=== PATIENT | female | born 1975 | race American Indian/Alaskan Native ===

== ENCOUNTER 2016-12-09 07:00 | Day surgery (SDC) | payer OTHER ==
--- NOTE | 2016-12-09 08:18 | Short Stay Summary ---
Short Stay Documentation Date of service: 12/09/16 Narrative H&P: 41-year-old 052 with a history of abnormal uterine bleeding. The patient had a pelvic ultrasound that demonstrated evidence of endometrial polyps. The patient has elected to undergo surgical management of her abnormal bleeding. - History Principal diagnosis: abnormal uterine bleeding Past Medical History: other (asthma) Past Surgical History: No surgical history Social history: single - Allergies and Medications Current Medications: Allergies seafood Allergy (Uncoded 11/19/16 10:04) Swelling Home Medications Medication Instructions Recorded Confirmed Last Taken Type Albuterol Sulfate [Ventolin HFA] 2 puff IH Q4H PRN 11/19/16 11/19/16 Unknown History - Physical exam General appearance: no acute distress Integumentary: no rash HEENT: Atraumatic Lungs: Clear to auscultation Breasts: deferred Heart: Regular rate Gastrointestinal: normal Female Genitourinary: deferred Rectal Exam: deferred - Brief post op/procedure progress note Date of procedure: 12/09/16 Pre-op diagnosis: Abnormal uterine bleeding; endometrial polyps Post-op diagnosis: same Procedure: hysteroscopy dilation and curettage Anesthesia: HERNESTO Surgeon: MIGUE ZARATE Estimated blood loss: minimal Pathology: list (endometrial curettings) Specimen disposition: to lab Condition: stable - Hospital course Hospital course: Patient was admitted the day of surgery and underwent hysteroscopy dilatation and curettage. Please see operative note for details of surgery. A postoperative course was uneventful. - Disposition Condition at discharge: Good Disposition: [id number] TO HOME OR SELFCARE Short Stay Discharge Plan Activity: other (pelvic rest for one week) Diet: regular Additional Instructions: patient may followup in 2-4 weeks Prescriptions: Ibuprofen [Motrin] 800 mg PO Q8HR PRN #60 tablet PRN Reason: Pain oxyCODONE /ACETAMINOPHEN [Percocet 5/325] 1 tab PO Q6HR PRN #30 tablet PRN Reason: Pain
[2016-12-09] MEDS ORDERED: DECADRON ONE (08:19)
[2016-12-09] MEDS ORDERED: SUBLIMAZE ONE (08:19)
[2016-12-09] MEDS ORDERED: DIPRIVAN 10 MG/ML IV ONE ×2 (08:19→10:06)
[2016-12-09] MEDS ORDERED: XYLOCAINE MPF 2% ONE (08:19)
[2016-12-09] MEDS ORDERED: ZOFRAN ONE (08:19)
--- NOTE | 2016-12-09 08:29 | Anesthesia Consultation ---
Anesthesia Consult and Med Hx Date of service: 12/09/16 - Airway Anesthetic Teeth Evaluation: Good ROM Head & Neck: Adequate Mental/Hyoid Distance: Adequate Mallampati Class: Class I Intubation Access Assessment: Good - Pre-Operative Health Status ASA Pre-Surgery Classification: ASA3 Proposed Anesthetic Plan: General - Pulmonary Hx Asthma: Yes (last treated in the spring) - Central Nervous System Hx Psychiatric Problems: No - Other Systems Hx Cancer: No
--- NOTE | 2016-12-09 08:29 | Anesthesia Day of Surgery ---
Anesthesia Day of Surgery - Day of Surgery Patient Examined: Yes Patient H&P Reviewed: Yes Patient is NPO: Yes
[2016-12-09] MEDS ORDERED: NACL 0.9% 1000 ML 1,000 ML IV SCH (08:59)
[2016-12-09] MEDS ORDERED: VERSED IV NR (09:00)
[2016-12-09] MEDS ORDERED: PEPCID PO NR (09:00)
[2016-12-09] MEDS ORDERED: ZOFRAN IV PRN (09:00)
[2016-12-09] MEDS ORDERED: PERCOCET 5/325 PO PRN (09:00)
[2016-12-09] MEDS ORDERED: DILAUDID IV PRN (09:00)
--- NOTE | 2016-12-09 09:57 | Operative Report ---
Operative Report Operative Report: Date of procedure: 12/09/2016 Pre-operative diagnosis: Abnormal uterine bleeding; endometrial polyps Post-operative diagnosis: Same as above Procedure name(s): Hysteroscopy; dilatation and curettage Surgeon: Esther Solano M.D. Dough Puncher: None Anesthesia: General endotracheal anesthesia Findings thickened endometrium Pathology: Endometrial curettings Indication: 41-year-old 052 with a history of abnormal uterine bleeding. Pelvic ultrasound and demonstrated evidence of endometrial polyps. Procedure The patient was taken to the operating room and given general tracheal anesthesia without complication. The patient was prepped and draped in a normal sterile fashion. A bivalve speculum was placed in the patient's vagina single-tooth tenaculums placed on the anterior lip of the cervix. The cervical os was dilated with graduated dilators. A uterine sound was inserted. The hysteroscope was then placed. Insufflation of the uterine cavity was performed with normal saline. Gen. survey of the uterine cavity revealed thickened and lush endometrium. The hysteroscope was then removed. A sharp curettage was performed of the endometrial surface until cry was achieved. The remainder of the vaginal instruments were then removed atraumatically. The patient was then successfully extubated taken to the recovery room. All sponge laps and needle counts were correct 2.
[2016-12-09] MEDS ORDERED: SORBITOL-MANNITOL IRRIG IR ONE (10:15)
[2016-12-09] MEDS ORDERED: ePHEDrine SULFATE ONE (10:18)
--- NOTE | 2016-12-09 11:19 | Post Anesthesia Evaluation ---
- Post Anesthesia Evaluation Patient Participated: Yes Airway Patent: Yes Stable Respiratory Function: Yes Temp > 96.8F: Yes Pain Manageable: Yes Adequeate Hydration: Yes Anesthesia Complications: No Block Receding Appropriately: Not Applicable
[2016-12-09 12:36] VITALS: BP 140/74
== END 2016-12-09 12:41 | disposition home or self-care (01) ==
LOC: OR 07:00
PROVIDERS: ATTEND Obstetrics & Gynecology
DX: N84.0 Polyp of corpus uteri (principal); N85.01 Benign endometrial hyperplasia; J45.909 Unspecified asthma, uncomplicated; Z91.013 Allergy to seafood; Z79.899 Other long term (current) drug therapy
CPT/HCPCS: 58558; 81025; 88305; J1100; J2250; J2405; J2704; J3010; J7030

== ENCOUNTER 2017-05-03 17:44 | Emergency (ER) | payer OTHER ==
[2017-05-03 18:24] VITALS: BP 118/75
[2017-05-03] MEDS ORDERED: DUONEB *Not for PRN Use IH ONE ×2 (18:34→23:08)
[2017-05-03 19:06] LABS: Anion Gap 16 mmol/L; BUN/Creatinine Ratio 20; Blood Urea Nitrogen 8 mg/dL (7-17); Calcium 8.9 mg/dL (8.4-10.2); Carbon Dioxide 27 mmol/L (22-30); Chloride 99.1 mmol/L (98-107); Glucose 88 mg/dL (65-100); Potassium 4.2 mmol/L (3.6-5.0); Sodium 138 mmol/L (137-145)
[2017-05-03 19:14] LABS: Basophils % (Auto) 0.5 % (0.0-1.8); Eosinophils % (Auto) 9.1 % (0.0-4.3); Hematocrit 40.9 % (30.3-42.9); Hemoglobin 14.1 gm/dl (10.1-14.3); Mean Corpuscular HGB Conc 35 % (30-34); Mean Corpuscular Hemoglobin 31 pg (28-32); Mean Corpuscular Volume 91 fl (79-97); Platelet Count 229 K/mm3 (140-440); Red Blood Count 4.52 M/mm3 (3.65-5.03); Red Cell Distribution Width 12.5 % (13.2-15.2); White Blood Count 10.5 K/mm3 (4.5-11.0)
--- NOTE | 2017-05-03 21:22 | XRay Report ---
FINAL REPORT PROCEDURE: XR CHEST ROUTINE 2V TECHNIQUE: PA and lateral chest radiographs were obtained. CPT 20776 HISTORY: Shortness of breath COMPARISON: No prior studies are available for comparison. FINDINGS: Heart: Upper normal size. Mediastinum/Vessels: Normal. Lungs/Pleural space: Normal. Bony thorax: No acute osseous abnormality. Other: IMPRESSION: Heart size upper normal. No acute abnormalities are identified..
[2017-05-03] MEDS ORDERED: ATROVENT IH ONE (21:29)
[2017-05-03] MEDS ORDERED: PROVENTIL IH ONE (21:29)
--- NOTE | 2017-05-03 23:11 | Emergency Department Report ---
ED Shortness of Breath HPI - General Chief Complaint: Dyspnea/Respdistress Stated Complaint: ASTHMA Time Seen by Provider: 05/03/17 22:46 Source: patient Mode of arrival: Ambulatory Limitations: No Limitations - History of Present Illness Initial Comments: 41 yo female who comes in today due to an asthma exacerbation. She states that her asthma started to act up on last weekend around Wednesday. She states that she only takes ventolin prn for her asthma. Also states that the change in weather made her asthma worse. Denies chest pain, fever, chils, but does admit to cough. MD Complaint: shortness of breath, "asthma attack" -: days(s) (three ) Radiation: other (none) Severity: moderate Improves With: bronchodilators Worsens With: coughing Known History Of: asthma Context: recent URI Associated Symptoms: cough Treatments Prior to Arrival: bronchodilator - Related Data Home Oxygen Therapy: No Home Medications Medication Instructions Recorded Confirmed Last Taken Albuterol Sulfate [Ventolin HFA] 2 puff IH Q4H PRN 11/19/16 11/19/16 Unknown Previous Rx's Medication Instructions Recorded Last Taken Type Ibuprofen [Motrin] 800 mg PO Q8HR PRN #60 tablet 12/09/16 Unknown Rx oxyCODONE /ACETAMINOPHEN [Percocet 1 tab PO Q6HR PRN #30 tablet 12/09/16 Unknown Rx 5/325] Prednisone 40 mg PO DAILY 3 Days tab.ds.pk 05/04/17 Unknown Rx Allergies Allergy/AdvReac Type Severity Reaction Status Date / Time seafood Allergy Swelling Uncoded 11/19/16 10:04 ED Review of Systems ROS: Stated complaint: ASTHMA Other details as noted in HPI Constitutional: denies: chills, fever Eyes: denies: eye pain, eye discharge, vision change ENT: denies: ear pain, throat pain Respiratory: see HPI, cough Cardiovascular: denies: chest pain, palpitations Endocrine: no symptoms reported Gastrointestinal: denies: abdominal pain, nausea, diarrhea Genitourinary: denies: urgency, dysuria, discharge Musculoskeletal: denies: back pain, joint swelling, arthralgia Skin: denies: rash, lesions Psychiatric: denies: anxiety, depression Hematological/Lymphatic: denies: easy bleeding, easy bruising ED Past Medical Hx - Past Medical History Previous Medical History?: Yes Hx Headaches / Migraines: Yes (migraines during periods) Hx Asthma: Yes (last treated in the spring) Hx HIV: No - Surgical History Past Surgical History?: Yes Additional Surgical History: dnc - Social History Smoking Status: Never Smoker Substance Use Type: Alcohol - Medications Home Medications: Home Medications Medication Instructions Recorded Confirmed Last Taken Type Albuterol Sulfate [Ventolin HFA] 2 puff IH Q4H PRN 11/19/16 11/19/16 Unknown History Ibuprofen [Motrin] 800 mg PO Q8HR PRN #60 tablet 12/09/16 Unknown Rx oxyCODONE /ACETAMINOPHEN [Percocet 1 tab PO Q6HR PRN #30 tablet 12/09/16 Unknown Rx 5/325] Prednisone 40 mg PO DAILY 3 Days tab.ds.pk 05/04/17 Unknown Rx ED Physical Exam - General Limitations: No Limitations General appearance: alert, in no apparent distress - Head Head exam: Present: atraumatic, normocephalic - Eye Eye exam: Present: normal appearance - ENT ENT exam: Present: mucous membranes moist - Neck Neck exam: Present: normal inspection - Respiratory Respiratory exam: Present: wheezes - Cardiovascular Cardiovascular Exam: Present: tachycardia - Extremities Exam Extremities exam: Present: normal inspection - Back Exam Back exam: Present: normal inspection - Neurological Exam Neurological exam: Present: alert, oriented X3 - Psychiatric Psychiatric exam: Present: normal affect, normal mood - Skin Skin exam: Present: warm, dry, intact, normal color. Absent: rash ED Course Vital Signs 05/03/17 05/03/17 05/03/17 18:18 21:38 21:45 Temperature 98.9 F Pulse Rate 109 H Pulse Rate [ 94 H 97 H Anterior Bilateral Throughout] Respiratory 20 Rate Respiratory 22 20 Rate [Anterior Bilateral Throughout] Blood Pressure 118/75 O2 Sat by Pulse 97 Oximetry 05/03/17 05/04/17 05/04/17 23:56 00:05 00:08 Temperature Pulse Rate Pulse Rate [ 94 H 102 H Anterior Bilateral Throughout] Respiratory 20 Rate Respiratory 20 20 Rate [Anterior Bilateral Throughout] Blood Pressure O2 Sat by Pulse 99 Oximetry - Reevaluation(s) Reevaluation #1: 05/04/17 00:24 Patient received steroids and another breathing treatment. Home with albuterol and po steroids. ED Medical Decision Making - Lab Data Result diagrams: 05/03/17 18:37 05/03/17 18:37 - Radiology Data Radiology results: report reviewed No acute process - Medical Decision Making Asthma Upper respiratory infection - Differential Diagnosis asthma, uri Critical care attestation.: If time is entered above; I have spent that time in minutes in the direct care of this critically ill patient, excluding procedure time. ED Disposition Clinical Impression: Asthma, URI (upper respiratory infection) Disposition: TO HOME OR SELFCARE Is pt being admited?: No Does the pt Need Aspirin: No Condition: Stable Instructions: Asthma (ED), Upper Respiratory Infection (ED) Additional Instructions: Take medicine as prescribed. Remember to use your albuterol inhaler as needed for shortness of breath. Return to the ED for worsening shortness of breath, chest pain, fever, chills, or productive cough. Prescriptions: Prednisone 40 mg PO DAILY 3 Days tab.ds.pk Referrals: AGUSTIN CARDONA MD [Primary Care Provider] - 3-5 Days Time of Disposition: 00:28
== END 2017-05-04 01:05 | disposition home or self-care (01) ==
LOC: ED 17:44
DX: J45.909 Unspecified asthma, uncomplicated (principal); J06.9 Acute upper respiratory infection, unspecified; G43.909 Migraine, unspecified, not intractable, without status migrainosus; Z91.013 Allergy to seafood
CPT/HCPCS: 36415; 71020; 80048; 84484; 84703; 85025; 94640; 96372; 99284; J2930

== ENCOUNTER 2018-08-04 09:11 | Outpatient (CLI) | payer OTHER ==
[2018-08-04 11:13] LABS: Chol/HDL Ratio 2.15 %
== END 2018-08-04 09:12 | disposition home or self-care (01) ==
LOC: LAB 09:11
PROVIDERS: ATTEND Internal Medicine
DX: E55.9 Vitamin D deficiency, unspecified (principal); D64.9 Anemia, unspecified; J30.9 Allergic rhinitis, unspecified; N83.209 Unspecified ovarian cyst, unspecified side; J45.909 Unspecified asthma, uncomplicated
CPT/HCPCS: 36415; 80061; 82306

== ENCOUNTER 2018-08-24 08:28 | Outpatient (CLI) | payer OTHER ==
--- NOTE | 2018-08-24 09:45 | Mammography Report ---
Bilateral mammogram: No previous studies available. CAD study utilized. Findings: Heterogeneous breast parenchyma bilaterally. Focal asymmetry subareolar area left breast and inner posterior right breast. No microcalcifications benign axillary nodes. Impression: Focal asymmetry in the left and right breast. Recommend spot compression and sonographic examination. BI-RADS CATEGORY: 0 = Needs additional imaging evaluation ACR BI-RADS MAMMOGRAPHIC CODES: 0 = Needs additional imaging evaluation; 1 = Negative; 2 = Benign; 3 = Probably benign; 4 = Suspicious; 5 = Malignant; 6 = Known biopsy-proven malignancy COMMENT: 1. Dense breast tissue, i.e., adenosis, fibrocystic changes, etc., may obscure an underlying neoplasm. 2. Approximately 10% of cancers are not detected with mammography. 3. A negative mammography report should not delay biopsy if a clinically suspicious mass is present. COMMENT: Patient follow-up letters are generated in [employer].
== END 2018-08-24 08:29 | disposition home or self-care (01) ==
LOC: MAMMO 08:28
PROVIDERS: ATTEND Internal Medicine
DX: Z12.31 Encounter for screening mammogram for malignant neoplasm of breast (principal); J45.909 Unspecified asthma, uncomplicated
CPT/HCPCS: 77067

== ENCOUNTER 2018-11-16 10:22 | Outpatient (CLI) | payer OTHER ==
[2018-11-16 12:00] LABS: Hematocrit 39.5 % (30.3-42.9); Hemoglobin 13.6 gm/dl (10.1-14.3); Mean Corpuscular HGB Conc 34 % (30-34); Mean Corpuscular Volume 90 fl (79-97); Platelet Count 265 K/mm3 (140-440); Red Blood Count 4.38 M/mm3 (3.65-5.03); Red Cell Distribution Width 13.1 % (13.2-15.2)
[2018-11-16 12:23] LABS: Bacteria,Urine 1+ /HPF (Negative); Bilirubin,Urine NEG (Negative); Blood,Urine NEG (Negative); Color,Urine Yellow (Yellow); Mucus,Urine FEW /HPF; Protein,Urine <15 mg/dL mg/dL (Negative); Urobilinogen,Urine < 2.0 mg/dL (<2.0); WBC,Urine < 1.0 /HPF (0.0-6.0)
[2018-11-16 12:32] LABS: Alanine Aminotransferase 15 units/L (7-56); Albumin 4.5 g/dL (3.9-5); BUN/Creatinine Ratio 20; Blood Urea Nitrogen 10 mg/dL (7-17); Calcium 9.1 mg/dL (8.4-10.2); Chol/HDL Ratio 2.18 %; HDL Cholesterol 74 mg/dL (40-59); Hemolysis Index 1; LDL Cholesterol,Direct 84 mg/dL (50-130)
[2018-11-18 11:27] LABS: Vitamin D, 25-OH, D2 27 ng/mL
== END 2018-11-16 10:23 | disposition home or self-care (01) ==
LOC: LAB 10:22
PROVIDERS: ATTEND Internal Medicine
DX: Z13.220 Encounter for screening for lipoid disorders (principal); Z13.1 Encounter for screening for diabetes mellitus; Z11.3 Encounter for screening for infections with a predominantly sexual mode of transmission; E55.9 Vitamin D deficiency, unspecified; D64.9 Anemia, unspecified; J45.909 Unspecified asthma, uncomplicated
CPT/HCPCS: 36415; 80053; 80061; 81001; 82306; 82607; 83036; 84443; 85027; 86592; 87591; 87806

== ENCOUNTER 2019-08-30 08:32 | Outpatient (CLI) | payer OTHER ==
--- NOTE | 2019-08-30 14:44 | Mammography Report ---
DIGITAL SCREENING MAMMOGRAM WITH CAD, 08/30/2019 INDICATION: Routine screening mammography. TECHNIQUE: Digital bilateral 2D mammography was obtained in the craniocaudal and mediolateral obliq ue projections. This examination was interpreted with the benefit of Computer-Aided Detection analysi s. COMPARISON: 08/24/2018 FINDINGS: Breast Density: The breasts are heterogeneously dense, which may obscure small masses. There is no evidence of dominant mass, suspicious calcifications or architectural distortion in eithe r breast. IMPRESSION: No mammographic evidence of malignancy. Follow up recommendation: Routine yearly BI-RADS Category 1: Negative. A "normal" or negative report should not discourage follow up or biopsy of a clinically significant f inding. A written summary of these findings will be mailed to the patient. The patient will be entered into a mammography reporting system which will generate a reminder letter for the patient's next appointmen t at the appropriate interval. The [employer] recommends yearly mammograms starting at age 40 and continuing as l juan as a woman is in good health. Breast MRI is recommended for women with an approximate 20-25% or greater lifetime risk of breast cancer, including women with a strong family history of breast or ova praneeth cancer or who have been treated for Hodgkin's disease. Signer Name: Mark Hardy MD Signed: 08/30/2019 2:39 PM Workstation Name: [id number]
== END 2019-08-30 08:33 | disposition home or self-care (01) ==
LOC: MAMMO 08:32
PROVIDERS: ATTEND Internal Medicine
DX: Z12.31 Encounter for screening mammogram for malignant neoplasm of breast (principal)
CPT/HCPCS: 77067

== ENCOUNTER 2020-09-04 10:48 | Outpatient (CLI) | payer OTHER ==
--- NOTE | 2020-09-04 12:44 | Mammography Report ---
DIGITAL SCREENING MAMMOGRAM WITH CAD, 09/04/2020 CLINICAL INFORMATION / INDICATION: Routine screening mammography. SCREENING MAMMOGRAM TECHNIQUE: Digital bilateral 2D mammography was obtained in the craniocaudal and mediolateral obliqu e projections. This examination was interpreted with the benefit of Computer-Aided Detection analysis . COMPARISON: 07/27/2016 through 08/30/2019. FINDINGS: Breast Density: The breasts are heterogeneously dense, which may obscure small masses. No dominant mass, suspicious calcifications, or architectural distortion in either breast. IMPRESSION: No mammographic evidence of malignancy. Follow up recommendation: Routine yearly BI-RADS Category 1: Negative. A "normal" or negative report should not discourage follow up or biopsy of a clinically significant f inding. A written summary of these findings will be mailed to the patient. The patient will be entered into a mammography reporting system which will generate a reminder letter for the patient's next appointmen t at the appropriate interval. The [employer] recommends yearly mammograms starting at age 40 and continuing as l juan as a woman is in good health. Breast MRI is recommended for women with an approximate 20-25% or greater lifetime risk of breast cancer, including women with a strong family history of breast or ova praneeth cancer or who have been treated for Hodgkin's disease. Signer Name: Tereso Xiao MD Signed: 09/04/2020 11:51 AM Workstation Name: [id number]
== END 2020-09-04 10:49 | disposition home or self-care (01) ==
LOC: MAMMO 10:48
PROVIDERS: ATTEND Internal Medicine
DX: Z12.31 Encounter for screening mammogram for malignant neoplasm of breast (principal)
CPT/HCPCS: 77067

== ENCOUNTER 2020-09-17 13:06 | Emergency (ER) | payer OTHER ==
[2020-09-17] MEDS ORDERED: methylPREDNISolone Sod Succinate 125 MG/2 ML INJ IM ONE (13:57)
[2020-09-17] MEDS ORDERED: IPRATROPIUM/ALBUTEROL SULFATE 3 ML AMPUL.NEB IH ONE (13:57)
--- NOTE | 2020-09-17 14:07 | Emergency Department Report ---
ED Asthma HPI - General Chief Complaint: Adult Asthma Stated Complaint: ASTHMA Time Seen by Provider: 09/17/20 13:43 Source: patient Mode of arrival: Ambulatory Limitations: No Limitations - History of Present Illness Initial Comments: 45 yr old female with pmhx of Asthma presents to ED with c/o asthma symptoms. She states her symptoms started about 1 week ago. She states she came into because she started having chest tightness. She reports wheezing, SOB, cough, sneezing and nasal congestion. She states her symptoms symptoms to be more at night. She states she has been using her albuterol MDI 3-4 times per day with mild relief. She has also been taking her Singulair. She states that she does not have a nebulizer machine. She states that she did have one episode of chills couple days ago but no fever. She denies tobacco use. She states the last time she was admitted for asthma was the beginning of 2019. MD Complaint: "asthma attack", shortness of breath, wheezing, other (Chest tightness) -: Gradual, week(s) (1) - Related Data Home Medications Medication Instructions Recorded Confirmed Last Taken Albuterol Sulfate [Ventolin HFA] 2 puff IH Q4H PRN 11/19/16 11/19/16 Unknown Previous Rx's Medication Instructions Recorded Last Taken Type Ibuprofen [Motrin] 800 mg PO Q8HR PRN #60 tablet 12/09/16 Unknown Rx oxyCODONE /ACETAMINOPHEN [Percocet 1 tab PO Q6HR PRN #30 tablet 12/09/16 Unknown Rx 5/325] predniSONE [predniSONE 10mg (21 40 mg PO DAILY 3 Days tab.ds.pk 05/04/17 Unknown Rx tabs)] Albuterol Mdi (or & Nicu Only) 2 puff IH QID PRN #8.5 gram 09/17/20 Unknown Rx [ProAir HFA Inhaler] Azithromycin [Zithromax Z-AIMEE] 250 mg PO DAILY #1 pack 09/17/20 Unknown Rx Cetirizine HCl [Zyrtec 10mg tab] 10 mg PO DAILY #30 tablet 09/17/20 Unknown Rx predniSONE [Deltasone] 50 mg PO QDAY #5 tab 09/17/20 Unknown Rx Allergies Allergy/AdvReac Type Severity Reaction Status Date / Time seafood Allergy Unknown Swelling Uncoded 09/17/20 13:12 ED Review of Systems ROS: Stated complaint: ASTHMA Other details as noted in HPI Comment: All other systems reviewed and negative Constitutional: denies: chills, fever Eyes: denies: eye pain, eye discharge, vision change ENT: congestion, other (Sneezing). denies: ear pain, throat pain Respiratory: cough, shortness of breath, wheezing Cardiovascular: other (Chest tightness). denies: chest pain, palpitations, dyspnea on exertion, edema, syncope, paroxysmal nocturnal dyspnea Gastrointestinal: denies: abdominal pain, nausea, diarrhea Genitourinary: denies: urgency, dysuria, frequency, hematuria, discharge, abnormal menses, dyspareunia Musculoskeletal: denies: back pain, joint swelling, arthralgia Skin: denies: rash, lesions, change in color, change in hair/nails, pruritus Neurological: denies: headache, weakness, numbness, paresthesias, confusion, abnormal gait, vertigo Psychiatric: denies: anxiety, depression, auditory hallucinations, visual hallucinations, homicidal thoughts, suicidal thoughts Hematological/Lymphatic: denies: easy bleeding, easy bruising ED Past Medical Hx - Past Medical History Hx Headaches / Migraines: Yes (migraines during periods) Hx Asthma: Yes (last treated in the spring) Hx HIV: No - Surgical History Additional Surgical History: dnc - Social History Smoking Status: Never Smoker Substance Use Type: None - Medications Home Medications: Home Medications Medication Instructions Recorded Confirmed Last Taken Type Albuterol Sulfate [Ventolin HFA] 2 puff IH Q4H PRN 11/19/16 11/19/16 Unknown History Ibuprofen [Motrin] 800 mg PO Q8HR PRN #60 tablet 12/09/16 Unknown Rx oxyCODONE /ACETAMINOPHEN [Percocet 1 tab PO Q6HR PRN #30 tablet 12/09/16 Unknown Rx 5/325] predniSONE [predniSONE 10mg (21 40 mg PO DAILY 3 Days tab.ds.pk 05/04/17 Unknown Rx tabs)] Albuterol Mdi (or & Nicu Only) 2 puff IH QID PRN #8.5 gram 09/17/20 Unknown Rx [ProAir HFA Inhaler] Azithromycin [Zithromax Z-AIMEE] 250 mg PO DAILY #1 pack 09/17/20 Unknown Rx Cetirizine HCl [Zyrtec 10mg tab] 10 mg PO DAILY #30 tablet 09/17/20 Unknown Rx predniSONE [Deltasone] 50 mg PO QDAY #5 tab 09/17/20 Unknown Rx ED Physical Exam - General Limitations: No Limitations General appearance: alert, in no apparent distress - Head Head exam: Present: atraumatic, normocephalic, normal inspection - Eye Eye exam: Present: normal appearance, PERRL, EOMI Pupils: Present: normal accommodation - ENT ENT exam: Present: normal exam, mucous membranes moist - Neck Neck exam: Present: normal inspection, full ROM. Absent: meningismus - Respiratory Respiratory exam: Present: decreased breath sounds (Upper lung francois). Absent: respiratory distress, wheezes, rales, rhonchi - Cardiovascular Cardiovascular Exam: Present: regular rate, normal rhythm, normal heart sounds - GI/Abdominal GI/Abdominal exam: Present: soft. Absent: tenderness, guarding, rebound - Extremities Exam Extremities exam: Present: normal inspection, full ROM. Absent: tenderness, pedal edema - Back Exam Back exam: Present: normal inspection - Neurological Exam Neurological exam: Present: alert, oriented X3, CN II-XII intact, normal gait - Psychiatric Psychiatric exam: Present: normal affect, normal mood - Skin Skin exam: Present: intact ED Course Vital Signs 09/17/20 09/17/20 13:09 14:00 Temperature 98.6 F Pulse Rate 82 Pulse Rate [ 76 Anterior] Pulse Rate [ 82 Posterior] Respiratory 16 Rate Respiratory 18 Rate [Anterior] Respiratory 18 Rate [Posterior ] Blood Pressure 103/67 O2 Sat by Pulse 100 Oximetry ED Medical Decision Making - Radiology Data Radiology results: report reviewed Patient: JOO PATTON MR#: [id number] : 1975 Acct:[id number] Age/Sex: 45 / F ADM Date: 09/17/20 Loc: ED Attending Dr: Ordering Physician: NATHALIA HESS Date of Service: 09/17/20 Procedure(s): XR chest 1V ap Accession Number(s): [id number] cc: NATHALIA HESS Fluoro Time In Minutes: CHEST 1 VIEW INDICATION: asthma, sob. COMPARISON: 05/03/2017 FINDINGS: SUPPORT DEVICES: None. HEART: Within normal limits. LUNGS/PLEURA: Subtle minimal patchy right basilar airspace disease with otherwise clear lungs. ADDITIONAL FINDINGS: None. IMPRESSION: 1. Pulmonary findings as above. Signer Name: Erik Durant MD Signed: 09/17/2020 4:05 PM Workstation Name: [id number] Transcribed By: ROBERTO Dictated By: Erik Durant MD Electronically Authenticated By: Erik Durant MD Signed Date/Time: 09/17/201604 DD/ 04 TD/TT: Critical care attestation.: If time is entered above; I have spent that time in minutes in the direct care o f this critically ill patient, excluding procedure time. ED Disposition Clinical Impression: Acute asthmatic bronchitis Disposition: - TO HOME OR SELFCARE Is pt being admited?: No Does the pt Need Aspirin: No Condition: Stable Instructions: Acute Bronchitis (ED), Asthma, Adult, [id number], Acute Bronchitis, Adult Additional Instructions: Take the zpak and prednisone as prescribed. Take zyrtec as prescribed. Continue your singular and albuterol MDI. I recommend follow up with PCP this week. Return to ED if worse. Prescriptions: predniSONE [Deltasone] 50 mg PO QDAY #5 tab Albuterol Mdi (or & Nicu Only) [ProAir HFA Inhaler] 2 puff IH QID PRN #8.5 gram PRN Reason: Shortness Of Breath Azithromycin [Zithromax Z-AIMEE] 250 mg PO DAILY #1 pack Cetirizine HCl [Zyrtec 10mg tab] 10 mg PO DAILY #30 tablet Referrals: PRIMARY CAREMD [Primary Care Provider] - 3-5 Days Time of Disposition: 17:02
--- NOTE | 2020-09-17 16:10 | XRay Report ---
CHEST 1 VIEW INDICATION: asthma, sob. COMPARISON: 05/03/2017 FINDINGS: SUPPORT DEVICES: None. HEART: Within normal limits. LUNGS/PLEURA: Subtle minimal patchy right basilar airspace disease with otherwise clear lungs. ADDITIONAL FINDINGS: None. IMPRESSION: 1. Pulmonary findings as above. Signer Name: Erik Durant MD Signed: 09/17/2020 4:05 PM Workstation Name: [id number]
[2020-09-17 17:33] VITALS: BP 128/67
== END 2020-09-17 17:42 | disposition home or self-care (01) ==
LOC: ED 13:06
DX: J45.909 Unspecified asthma, uncomplicated (principal); G43.909 Migraine, unspecified, not intractable, without status migrainosus; Z79.899 Other long term (current) drug therapy; Z91.013 Allergy to seafood
CPT/HCPCS: 71045; 94640; 96372; 99283; J2930; 94644

== ENCOUNTER 2020-12-05 10:02 | Outpatient (CLI) | payer OTHER ==
[2020-12-05 11:15] LABS: Alanine Aminotransferase 18 units/L (7-56); Albumin 4.2 g/dL (3.9-5); Blood Urea Nitrogen 11 mg/dL (7-17); Calcium 9.1 mg/dL (8.4-10.2); Chol/HDL Ratio 2.67 %; HDL Cholesterol 62 mg/dL (40-59); Hemolysis Index 11; Iron 69 ug/dL (37-170); LDL Cholesterol,Direct 106 mg/dL (50-130)
[2020-12-05 11:29] LABS: BUN/Creatinine Ratio 22
[2020-12-05 12:07] LABS: Basophils # (Auto) 0.1 K/mm3 (0.0-0.1); Basophils % (Auto) 0.8 % (0.0-1.8); Eosinophils # (Auto) 0.2 K/mm3 (0.0-0.4); Eosinophils % (Auto) 3.6 % (0.0-4.3); Hematocrit 40.4 % (30.3-42.9); Hemoglobin 13.6 gm/dl (10.1-14.3); Lymphocytes # (Auto) 2.4 K/mm3 (1.2-5.4); Lymphocytes % (Auto) 36.5 % (13.4-35.0); Mean Corpuscular HGB Conc 34 % (30-34); Mean Corpuscular Volume 91 fl (79-97); Monocytes # (Auto) 0.4 K/mm3 (0.0-0.8); Monocytes % (Auto) 6.5 % (0.0-7.3); Platelet Count 226 K/mm3 (140-440); Red Blood Count 4.45 M/mm3 (3.65-5.03); Red Cell Distribution Width 13.3 % (13.2-15.2)
== END 2020-12-05 10:03 | disposition home or self-care (01) ==
LOC: LAB 10:02
PROVIDERS: ATTEND Internal Medicine
DX: Z13.220 Encounter for screening for lipoid disorders (principal); Z00.00 Encounter for general adult medical examination without abnormal findings; Z13.29 Encounter for screening for other suspected endocrine disorder; D64.9 Anemia, unspecified; Z13.1 Encounter for screening for diabetes mellitus; Z55.9 Problems related to education and literacy, unspecified; E55.9 Vitamin D deficiency, unspecified
CPT/HCPCS: 36415; 80053; 80061; 82728; 83036; 83540; 84443; 85025

== ENCOUNTER 2021-04-21 09:32 | Outpatient (CLI) | payer OTHER ==
[2021-04-21 10:34] LABS: Chol/HDL Ratio 2.64 %
== END 2021-04-21 09:33 | disposition home or self-care (01) ==
LOC: LAB 09:32
PROVIDERS: ATTEND Internal Medicine
DX: R73.03 Prediabetes (principal)
CPT/HCPCS: 36415; 80061; 83036

== ENCOUNTER 2021-12-17 10:23 | Outpatient (CLI) | payer OTHER ==
[2021-12-17 12:28] LABS: Basophils % (Auto) 0.6 % (0.0-1.8); Eosinophils # (Auto) 0.3 K/mm3 (0.0-0.4); Eosinophils % (Auto) 3.9 % (0.0-4.3); Hemoglobin 13.5 gm/dl (10.1-14.3); Lymphocytes # (Auto) 3.2 K/mm3 (1.2-5.4); Lymphocytes % (Auto) 39.6 % (13.4-35.0); Mean Corpuscular HGB Conc 34 % (30-34); Mean Corpuscular Volume 90 fl (79-97); Monocytes # (Auto) 0.5 K/mm3 (0.0-0.8); Monocytes % (Auto) 5.6 % (0.0-7.3); Platelet Count 234 K/mm3 (140-440); Red Blood Count 4.46 M/mm3 (3.65-5.03); Red Cell Distribution Width 12.5 % (13.2-15.2)
[2021-12-17 15:15] LABS: Alanine Aminotransferase 17 units/L (7-56); Albumin 4.3 g/dL (3.9-5); Blood Urea Nitrogen 12 mg/dL (7-17); Calcium 9.2 mg/dL (8.4-10.2); Chol/HDL Ratio 2.71 %; HDL Cholesterol 64 mg/dL (40-59); Hemolysis Index 9; LDL Cholesterol,Direct 99 mg/dL (50-130)
[2021-12-17 15:18] LABS: BUN/Creatinine Ratio 24
== END 2021-12-17 10:24 | disposition home or self-care (01) ==
LOC: LABHHL 10:23
PROVIDERS: ATTEND Internal Medicine
DX: Z00.00 Encounter for general adult medical examination without abnormal findings (principal); E55.9 Vitamin D deficiency, unspecified; R73.03 Prediabetes; R53.83 Other fatigue
CPT/HCPCS: 36415; 80053; 80061; 82306; 83036; 84443; 85025

== ENCOUNTER 2021-12-25 09:26 | Outpatient (CLI) | payer OTHER ==
--- NOTE | 2021-12-26 09:47 | Mammography Report ---
DIGITAL SCREENING MAMMOGRAM WITH CAD, 12/25/2021 CLINICAL INFORMATION / INDICATION: Routine screening mammography. SCREENING MAMMOGRAM Z12.31 TECHNIQUE: Digital bilateral 2D mammography was obtained in the craniocaudal and mediolateral obliqu e projections. This examination was interpreted with the benefit of Computer-Aided Detection analysis . COMPARISON: 09/04/2020. FINDINGS: Breast Density: The breasts are heterogeneously dense, which may obscure small masses. No dominant mass, suspicious calcifications, or architectural distortion in either breast. IMPRESSION: No mammographic evidence of malignancy. Follow up recommendation: Routine yearly screening mammogram. BI-RADS Category 1: NEGATIVE A "normal" or negative report should not discourage follow up or biopsy of a clinically significant f inding. A written summary of these findings will be mailed to the patient. The patient will be entered into a mammography reporting system which will generate a reminder letter for the patient's next appointmen t at the appropriate interval. The [employer] recommends yearly mammograms starting at age 40 and continuing as l juan as a woman is in good health. Breast MRI is recommended for women with an approximate 20-25% or greater lifetime risk of breast cancer, including women with a strong family history of breast or ova praneeth cancer or who have been treated for Hodgkin's disease. Signer Name: Raheem Anderson MD Signed: 12/26/2021 9:43 AM Workstation Name: [id number]
== END 2021-12-25 09:27 | disposition home or self-care (01) ==
LOC: MAMMO 09:26
PROVIDERS: ATTEND Internal Medicine
DX: Z12.31 Encounter for screening mammogram for malignant neoplasm of breast (principal)
CPT/HCPCS: 77067